=== PATIENT | female | born 2000 | race Two or more races ===

== ENCOUNTER 2019-08-29 18:19 | Emergency (ER) | payer OTHER ==
[2019-08-29 19:41] LABS: ABS Basophils 0.1 10^3/ul (0-0.2); ABS Eosinophils 0.1 10^3/ul (0-0.6); ABS Lymphocytes 2.4 10^3/ul (1.0-4.8); ABS Monocytes 0.9 10^3/ul (0-0.8); ABS Neutrophils 11.9 10^3/ul (1.5-7.7); Eosinophil % 0.4 %; Hematocrit 42 % (35-47); Hemoglobin 13.9 g/dL (12.0-16.0); Lymphocyte % 15.4 %; Mean Corpuscular HGB Conc 33 g/dL (31-36); Mean Corpuscular Hemoglobin 30 pg (27-31); Mean Corpuscular Volume 89 fL (80-97); Mean Platelet Volume 8.3 fL (7.4-10.4); Nucleated Red Blood Cells % 0.1; Platelet Count 351 10^3/uL (150-450); Red Blood Count 4.66 10^6 /uL (3.70-4.87); Red Cell Distribution Width 14 % (10-15); White Blood Count 15.4 10^3/uL (3.5-10.8)
[2019-08-29 20:04] LABS: ALT 8 U/L (7-52); AST 17 U/L (13-39); Albumin 4.5 g/dL (3.2-5.2); Albumin/Globulin Ratio 1.3 (1-3); Alkaline Phosphatase 66 U/L (34-104); Anion Gap 9 mmol/L (2-11); BUN/Creatinine Ratio 13.4 (8-20); Blood Urea Nitrogen 11 mg/dL (6-24); CO2 Carbon Dioxide 25 mmol/L (22-32); Chloride 104 mmol/L (101-111); EGFR African American 106.5 (>60); Globulin 3.5 g/dL (2-4); Glucose 93 mg/dL (70-100); Sodium 138 mmol/L (135-145)
[2019-08-29 20:09] LABS: HCG Pregnancy < 0.60 mIU/mL
[2019-08-29] MEDS ORDERED: NS 0.9% 1000 ML** 1,000 ML IV ONE (22:08)
[2019-08-29] MEDS ORDERED: Ketorolac INJ* 30 MG/ML 1 ML VIAL IV PUSH ONE (22:08)
--- NOTE | 2019-08-29 22:09 | ED ---
Abdominal Pain/Female - HPI Summary HPI Summary: This pt is a 19 Y/O F presenting to [facility] for a CC of abdominal pain located in her epigastric region that radiates into her stomach and rated a 4/10 in severity. She states that she has had flu like symptoms a couple weeks ago and that her symptoms had worsened today. She states that she has a sore throat, chills, productive cough with yellow thick phlegm, SOB that started today, and nausea that also started today. She also states that she has been fatigued and has had swelling in her R lower extremity behind her knee. She states that her pain was really bad today and was the worst that it has been. She states that the pain is worse on the L side of her epigastric region. She has no aggravating or alleviating factors. She states no PMHx that is pertinent. - History of Current Complaint Chief Complaint: EDAbdPain Stated Complaint: CHEST PAIN PER PT Time Seen by Provider: 08/29/19 21:59 Hx Obtained From: Patient Onset/Duration: Sudden Onset, Lasting Weeks, Still Present, Worse Since - this morning Timing: Constant Severity Initially: Mild Severity Currently: Moderate Pain Intensity: 5 Pain Scale Used: 0-10 Numeric Location: Epigastric - states that it is worse on the L side Radiates: Yes Radiates to: Other - stomach Aggravating Factor(s): Nothing Alleviating Factor(s): Nothing Associated Signs and Symptoms: Positive: Cough - production of yellow thick mucus, Nausea, Other: - POSITIVE: R lower extemity swelling, sore throat, chills , productive cough with yellow thick phlegm, SOB that started today, and nausea that also started today. Allergies/Adverse Reactions: Allergies Allergy/AdvReac Type Severity Reaction Status Date / Time No Known Allergies Allergy Verified 08/29/19 18:31 PMH/Surg Hx/FS Hx/Imm Hx Previously Healthy: Yes Infectious Disease History: No Infectious Disease History: Denies: Traveled Outside the [place] in Last 30 Days - Social History Occupation: Student - [place] Lives: Dormitory/Roommates Review of Systems Positive: Chills, Fatigue. Negative: Fever Positive: Sore Throat Positive: Shortness Of Breath, Cough - productive with yellow, thick, phlegm Positive: Abdominal Pain - epigastric, radiates to the stomach , Nausea Musculoskeletal: Other - POSITIVE: swelling her R lower extremity All Other Systems Reviewed And Are Negative: Yes Physical Exam - Summary Physical Exam Summary: Appearance: Well-appearing, Well-nourished, lying in bed comfortably Skin: Warm, dry, no obvious rash Eyes: sclera anicteric, no conjunctival pallor ENT: mucous membranes moist, pharynx appears normal Neck: Supple, nontender Respiratory: Clear to auscultation, no signs of respiratory distress Cardiovascular: Normal S1, S2. No murmurs. Normal distal pulses in tibial and radial bilaterally. Abdomen: Soft, nontender, normal active bowel sounds present Musculoskeletal: Normal, Strength/ROM Intact Neurological: A&Ox3, awake and alert, mentation is normal, speech is fluent and appropriate Psychiatric: affect is normal, does not appear anxious or depressed Triage Information Reviewed: Yes Vital Signs On Initial Exam: Initial Vitals Temp Pulse Resp BP Pulse Ox 99.6 F 89 18 161/110 98 08/29/19 18:27 08/29/19 18:27 08/29/19 18:27 08/29/19 18:27 08/29/19 18:27 Vital Signs Reviewed: Yes Procedures - Sedation Patient Received Moderate/Deep Sedation with Procedure: No Diagnostics - Vital Signs Vital Signs Temp Pulse Resp BP Pulse Ox 08/29/19 20:30 99.5 F 92 18 136/76 97 08/29/19 18:27 99.6 F 89 18 161/110 98 - Laboratory Lab Results: Lab Results 08/29/19 08/29/19 Range/Units 19:34 19:34 WBC 15.4 H (3.5-10.8) 10^3/uL RBC 4.66 (3.70-4.87) 10^6 /uL Hgb 13.9 (12.0-16.0) g/dL Hct 42 (35-47) % MCV 89 (80-97) fL MCH 30 (27-31) pg MCHC 33 (31-36) g/dL RDW 14 (10-15) % Plt Count 351 (150-450) 10^3/uL MPV 8.3 (7.4-10.4) fL Neut % (Auto) 77.3 % Lymph % (Auto) 15.4 % [place] % (Auto) 6.1 % Eos % (Auto) 0.4 % Baso % (Auto) 0.8 % Absolute Neuts (auto) 11.9 H (1.5-7.7) 10^3/ul Absolute Lymphs (auto) 2.4 (1.0-4.8) 10^3/ul Absolute Monos (auto) 0.9 H (0-0.8) 10^3/ul Absolute Eos (auto) 0.1 (0-0.6) 10^3/ul Absolute Basos (auto) 0.1 (0-0.2) 10^3/ul Absolute Nucleated RBC 0.0 10^3/ul Nucleated RBC % 0.1 Sodium 138 (135-145) mmol/L Potassium 4.0 (3.5-5.0) mmol/L Chloride 104 (101-111) mmol/L Carbon Dioxide 25 (22-32) mmol/L Anion Gap 9 (2-11) mmol/L BUN 11 (6-24) mg/dL Creatinine 0.82 (0.51-0.95) mg/dL Est GFR ( Amer) 106.5 (>60) Est GFR (Non-Af Amer) 88.0 (>60) BUN/Creatinine Ratio 13.4 (8-20) Glucose 93 (70-100) mg/dL Calcium 10.0 (8.6-10.3) mg/dL Total Bilirubin 0.40 (0.2-1.0) mg/dL AST 17 (13-39) U/L ALT 8 (7-52) U/L Alkaline Phosphatase 66 (34-104) U/L Total Protein 8.0 (6.4-8.9) g/dL Albumin 4.5 (3.2-5.2) g/dL Globulin 3.5 (2-4) g/dL Albumin/Globulin Ratio 1.3 (1-3) Lipase 25 (11.0-82.0) U/L Beta HCG, Quant < 0.60 mIU/mL Result Diagrams: 08/29/19 19:34 08/29/19 19:34 Lab Statement: Any lab studies that have been ordered have been reviewed, and results considered in the medical decision making process. - Radiology CXR Radiology Interpretation Completed By: ED Physician Summary of Radiographic Findings: No acute processes. Pending offical review. - Ultrasound Venous Doppler Study Ultrasound Interpretation Completed By: Radiologist Summary of Ultrasound Findings: No evidence for a DVT. ED physician has reviewed this report. - EKG 1818 Cardiac Rate: NL - 88 BPM EKG Rhythm: Sinus Rhythm ST Segment: Normal Ectopy: None Summary of EKG Findings: NSR at 88 BPM, P waves, QRS complex, and T waves are within normal limits, T waves and intervals are normal, no ischemic changes. This is a normal EKG. Interpreted by Dr. Hylton at 08/29/191824. Abdominal Pain Fem Course/Dx - Course Course Of Treatment: This pt is a 19 Y/O F presenting to [facility] for a CC of abdominal pain located in her epigastric region that radiates into her stomach and rated a 4/10 in severity. She states that she has had flu like symptoms a couple weeks ago and that her symptoms had worsened today. She states that she has a sore throat, chills, productive cough with yellow thick phlegm, SOB that started today, and nausea that also started today. She states that her pain was really bad today and was the worst that it has been. Her PE found no abnormal findings. She has abnormal laboratory values in her WBc, Absolute neuts, Absolute Monos. Her EKG taken at 1818 found that she had a NSR at 88 BPM, P waves, QRS complex, and T waves are within normal limits, T waves and intervals are normal, no ischemic changes. This is a normal EKG. Her CXR shows no acute processes. Her Venous Doppler Study found no evidence for a DVT. She will be discharged home with a Dx of bronchitis and chest wall pain. - Diagnoses Provider Diagnoses: Bronchitis, Chest wall pain Discharge ED - Sign-Out/Discharge Documenting (check all that apply): Patient Departure - discharge - Discharge Plan Condition: Good Disposition: HOME Prescriptions: Azithromycin TAB* [Zithromax TAB (Z-MARYBETH) 250 mg #6 tabs] 2 tab PO .TODAY, THEN 1 DAILY #1 marybeth Patient Education Materials: Acute Bronchitis (ED) Referrals: [facility] - Roberto DENG [Primary Care Provider] - Additional Instructions: You can take alleve (naproxen) 1 tab twice daily for pain. 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 - Billing Disposition and Condition Condition: GOOD Disposition: Home - Attestation Statements Document Initiated by Scribe: Yes Documenting Scribe: Chan Hayward Provider For Whom Scribe is Documenting (Include Credential): Joce Andres MD Scribe Attestation: I, Chan Hayward, scribed for Joce Andres MD on 08/30/19 at 2113. Scribe Documentation Reviewed: Yes Provider Attestation: The documentation as recorded by the scribeChan accurately reflects the service I personally performed and the decisions made by me, Joce Andres MD Status of Scribe Document: Viewed
[2019-08-30 01:01] VITALS: BP 142/94
== END 2019-08-30 01:00 | disposition home or self-care (01) ==
LOC: ED 18:19
DX: J40 Bronchitis, not specified as acute or chronic (principal); R07.89 Other chest pain; R11.0 Nausea; J02.9 Acute pharyngitis, unspecified; M79.89 Other specified soft tissue disorders; Z32.02 Encounter for pregnancy test, result negative
CPT/HCPCS: 36415; 71046; 80053; 83690; 84702; 85025; 85379; 93005; 96361; 96374; 99283; J1885